=== PATIENT | female | born 1980 | race Caucasian/White ===

== ENCOUNTER 2019-06-14 08:56 | Emergency (ER) | payer MEDICAID ==
--- NOTE | 2019-06-14 09:37 | EDM.PDOC ---
ED HPI GENERAL MEDICAL PROBLEM - General Chief Complaint: Cardiovascular Problem Stated Complaint: BLOOD PRESSURE WAS LOW Time Seen by Provider: 06/14/19 09:32 Source of Information: Reports: Patient, RN, RN Notes Reviewed History Limitations: Reports: No Limitations - History of Present Illness INITIAL COMMENTS - FREE TEXT/NARRATIVE: Recoverer states she took pts blood pressure this morning and it was 79/44 and then 77/43. Blood pressure upon arrival is 95/43. Pt is from [facility]. Pt states she is dizzy this am and has been the last couple mornings. Patient also states that her blood pressures have been low the last couple mornings as well and did not eat this morning. Blood pressure medications were given right before vitals taken this am. Patient denies syncope, fever/chills, feeling ill. Onset: Today Duration: Improving Improves with: Reports: None Worsens with: Reports: None Associated Symptoms: Denies: Confusion, Chest Pain, Cough, Fever/Chills, Headaches, Loss of Appetite, Nausea/Vomiting, Shortness of Breath, Syncope, Weakness Throat Pain Score (Numeric/FACES): 2 - Related Data Allergies Allergy/AdvReac Type Severity Reaction Status Date / Time ciprofloxacin Allergy Seizure Verified 06/14/19 09:14 latex Allergy Hives Verified 06/14/19 09:14 Home Meds: Home Meds Aripiprazole Lauroxil [Aristada] 1,064 mg IM ASDIRECTED 06/14/19 [History] Cholecalciferol (Vitamin D3) [Vitamin D3] 1,000 unit PO DAILY 06/14/19 [History] DULoxetine HCl [Cymbalta] 60 mg PO DAILY 06/14/19 [History] Digoxin 0.125 mcg PO DAILY 06/14/19 [History] Lisinopril [Zestril] 10 mg PO DAILY 06/14/19 [History] Melatonin 3 mg PO DAILY 06/14/19 [History] Nicotine Polacrilex [Nicotine Gum] 2 mg BC Q6H PRN 06/14/19 [History] Spironolactone [Aldactone] 25 mg PO DAILY 06/14/19 [History] hydrOXYzine HCL [hydrOXYzine] 25 mg PO BID 06/14/19 [History] metFORMIN [Glucophage XR] 500 mg PO BID 06/14/19 [History] Past Medical History HEENT History: Reports: Impaired Vision Cardiovascular History: Reports: Heart Failure, Hypertension Respiratory History: Reports: None Gastrointestinal History: Reports: None Genitourinary History: Reports: None 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 Musculoskeletal History: Reports: None Neurological History: Reports: None Psychiatric History: Reports: Anxiety, Dementia Endocrine/Metabolic History: Reports: Diabetes, Type II Hematologic History: Reports: None Immunologic History: Reports: None Oncologic (Cancer) History: Reports: None Dermatologic History: Reports: Psoriasis - Infectious Disease History Infectious Disease History: Reports: Chicken Pox - Past Surgical History Head Surgeries/Procedures: Reports: None Social & Family History - Family History Family Medical History: Noncontributory - Tobacco Use Smoking Status *Q: Former Smoker Years of Tobacco use: 10 Packs/Tins Daily: 0 Used Tobacco, but Quit: Yes Month/Year Tobacco Last Used: 05/2019 - Caffeine Use Caffeine Use: Reports: Coffee - Recreational Drug Use Recreational Drug Use: No ED ROS GENERAL - Review of Systems Review Of Systems: Comprehensive ROS is negative, except as noted in HPI. ED EXAM, GENERAL - Physical Exam Exam: See Below Exam Limited By: No Limitations General Appearance: Alert, WD/WN, No Apparent Distress Eye Exam: Bilateral Eye: EOMI, Normal Inspection, PERRL Ears: Normal External Exam, Normal Canal, Hearing Grossly Normal, Normal TMs Ear Exam: Bilateral Ear: Auricle Normal, Canal Normal, TM normal Nose: Normal Inspection, Normal Mucosa, No Blood Throat/Mouth: Normal Inspection, Normal Lips, Normal Teeth, Normal Gums, Normal Oropharynx, Normal Voice, No Airway Compromise Head: Atraumatic, Normocephalic Neck: Normal Inspection, Supple, Non-Tender, Full Range of Motion Respiratory/Chest: No Respiratory Distress, Lungs Clear, Normal Breath Sounds, No Accessory Muscle Use, Chest Non-Tender Cardiovascular: Normal Peripheral Pulses, Regular Rate, Rhythm, No Edema, No Gallop, No JVD, No Murmur, No Rub GI/Abdominal: Normal Bowel Sounds, Soft, Non-Tender, No Organomegaly, No Distention, No Abnormal Bruit, No Mass Course - Vital Signs Last Recorded V/S: Last Vital Signs Temp 96.5 F L 06/14/19 09:06 Pulse 61 06/14/19 10:23 Resp 16 06/14/19 10:23 BP 94/45 L 06/14/19 11:21 Pulse Ox 100 06/14/19 10:23 - Orders/Labs/Meds Orders: Active Orders 24 hr Category Date Time Status EKG Documentation Completion [RC] URGENT Care 06/14/19 09:26 Active Sodium Chloride 0.9% [Normal Saline] 500 ml Med 06/14/19 10:30 Active IV .BOLUS Medication Orders Sodium Chloride (Normal Saline) 500 mls @ 999 mls/hr IV .BOLUS BRISEIDA Last Admin: 06/14/19 10:35 Dose: 999 mls/hr Labs: Laboratory Tests 06/14/19 06/14/19 06/14/19 Range/Units 09:37 09:37 09:37 WBC 7.7 (5.0-10.0) 10^3/uL RBC 4.51 (4.2-5.4) 10^6/uL Hgb 13.5 (12.0-16.0) g/dL Hct 40.2 (37.0-47.0) % MCV 89.1 (80-100) fL MCH 29.9 (27.0-34.0) pg MCHC 33.6 (33.0-35.0) g/dL Plt Count 280 (150-450) 10^3/uL Neut % (Auto) 65.5 (42.2-75.2) % Lymph % (Auto) 26.9 (20.5-50.1) % [place] % (Auto) 6.1 (2-8) % Eos % (Auto) 1.2 (1.0-3.0) % Baso % (Auto) 0.3 (0.0-1.0) % Sodium 135 (135-145) mmol/L Potassium 5.0 (3.6-5.0) mmol/L Chloride 99 L (101-111) mmol/L Carbon Dioxide 30.0 (21.0-31.0) mmol/L Anion Gap 11.0 BUN 17 (7-18) mg/dL Creatinine 0.7 (0.6-1.3) mg/dL Est Cr Clr Drug Dosing 80.61 mL/min Estimated GFR (MDRD) > 60 BUN/Creatinine Ratio 24.28 Glucose 93 (74-105) mg/dL Calcium 9.3 (8.4-10.2) mg/dl Total Bilirubin 0.6 (0.2-1.0) mg/dL AST 15 (10-42) IU/L ALT 14 (10-60) IU/L Alkaline Phosphatase 50 (42-121) IU/L Troponin I < 0.02 (0.00-0.02) ng/ml Total Protein 7.2 (6.7-8.2) g/dl Albumin 3.9 (3.2-5.5) g/dl Globulin 3.3 Albumin/Globulin Ratio 1.18 Digoxin 1.7 (0-2.5) ng/ml Meds: Medications Generic Name Dose Route Start Last Admin Trade Name Freq PRN Reason Stop Dose Admin Sodium Chloride 500 mls @ 999 mls/hr 06/14/19 10:30 06/14/19 10:35 Normal Saline IV 999 mls/hr .BOLUS BRISEIDA Administration Departure - Departure Time of Disposition: 11:30 Disposition: Home, Self-Care 01 Condition: Good Clinical Impression: Hypotension Qualifiers: Hypotension type: unspecified hypotension type Qualified Code(s): I95.9 - Hypotension, unspecified Instructions: Hypotension, [id number], Hypertension, [id number], Near- Syncope, [id number] Forms: ED Department Discharge Additional Instructions: You should follow-up with your primary care provider this week or next week to discuss medication adjustments for your blood pressure. You should also hold any other blood pressure medication today if you have not taken them already. Before you take your medications in the morning you should have your blood pressure checked. Sepsis Event Note - Evaluation Sepsis Screening Result: No Definite Risk - Focused Exam Vital Signs: Vital Signs Temp Pulse Resp BP Pulse Ox 06/14/19 11:21 94/45 L 06/14/19 10:56 98/48 L 06/14/19 10:23 61 16 86/49 L 100 06/14/19 09:06 96.5 F L 66 18 95/43 L 100 Date Exam was Performed: 06/14/19 Time Exam was Performed: 11:24
[2019-06-14 10:03] LABS: CHLORIDE,CL 99 mmol/L (101-111); SODIUM,NA 135 mmol/L (135-145)
[2019-06-14] MEDS ORDERED: Sodium Chloride 0.9% 500 ML IV SCH (10:30)
== END 2019-06-14 11:34 | disposition home or self-care (01) ==
LOC: DL.ED 08:56
DX: I95.9 Hypotension, unspecified (principal); I11.0 Hypertensive heart disease with heart failure; I50.9 Heart failure, unspecified; F41.9 Anxiety disorder, unspecified; E11.9 Type 2 diabetes mellitus without complications; Z79.84 Long term (current) use of oral hypoglycemic drugs; Z79.899 Other long term (current) drug therapy; Z88.1 Allergy status to other antibiotic agents; Z91.040 Latex allergy status; Z87.891 Personal history of nicotine dependence
CPT/HCPCS: 36415; 80053; 80162; 84484; 85025; 93005; 96360; 99285; J7040

== ENCOUNTER 2019-06-24 10:29 | Emergency (ER) | payer MEDICAID ==
[2019-06-24 11:28] LABS: ANION GAP 10.7; CHLORIDE,CL 100 mmol/L (101-111); SODIUM,NA 136 mmol/L (135-145)
--- NOTE | 2019-06-24 11:33 | EDM.PDOC ---
ED HPI GENERAL MEDICAL PROBLEM - General Chief Complaint: Cardiovascular Problem Stated Complaint: HIGH BLOOD PRESSURE/LEFT ARM PAIN Time Seen by Provider: 06/24/19 10:40 Source of Information: Reports: Patient, Retirement Records, RN Notes Reviewed History Limitations: Reports: No Limitations - History of Present Illness INITIAL COMMENTS - FREE TEXT/NARRATIVE: Senior Living Resident. Hx hypotension Lisnopril was on hold , re-started last week , Staff rechecking and BP have been in low 70's. State resident not c/o symptoms but when questioned resident able to verbalize dizzy if stands up to fast. Has follow up scheduled on Wednesday. No falls related to low BP - Related Data Allergies Allergy/AdvReac Type Severity Reaction Status Date / Time ciprofloxacin Allergy Seizure Verified 06/14/19 09:14 latex Allergy Hives Verified 06/14/19 09:14 Home Meds: Home Meds Aripiprazole Lauroxil [Aristada] 1,064 mg IM ASDIRECTED 06/14/19 [History] Cholecalciferol (Vitamin D3) [Vitamin D3] 1,000 unit PO DAILY 06/14/19 [History] DULoxetine HCl [Cymbalta] 60 mg PO DAILY 06/14/19 [History] Digoxin 0.125 mcg PO DAILY 06/14/19 [History] Lisinopril [Zestril] 10 mg PO DAILY 06/14/19 [History] Melatonin 3 mg PO DAILY 06/14/19 [History] Nicotine Polacrilex [Nicotine Gum] 2 mg BC Q6H PRN 06/14/19 [History] Spironolactone [Aldactone] 25 mg PO DAILY 06/14/19 [History] hydrOXYzine HCL [hydrOXYzine] 25 mg PO BID 06/14/19 [History] metFORMIN [Glucophage XR] 500 mg PO BID 06/14/19 [History] Past Medical History HEENT History: Reports: Impaired Vision Cardiovascular History: Reports: Heart Failure, Hypertension Respiratory History: Reports: None Gastrointestinal History: Reports: None Genitourinary History: Reports: None 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 Musculoskeletal History: Reports: None Neurological History: Reports: None Psychiatric History: Reports: Anxiety, Bipolar, Dementia Endocrine/Metabolic History: Reports: Diabetes, Type II Hematologic History: Reports: None Immunologic History: Reports: None Oncologic (Cancer) History: Reports: None Dermatologic History: Reports: Psoriasis - Infectious Disease History Infectious Disease History: Reports: Chicken Pox - Past Surgical History Head Surgeries/Procedures: Reports: None Social & Family History - Family History Family Medical History: Noncontributory - Tobacco Use Smoking Status *Q: Former Smoker Used Tobacco, but Quit: Yes Month/Year Tobacco Last Used: 1 - Caffeine Use Caffeine Use: Reports: None - Recreational Drug Use Recreational Drug Use: No ED ROS GENERAL - Review of Systems Review Of Systems: Comprehensive ROS is negative, except as noted in HPI. ED EXAM, GENERAL - Physical Exam Exam: See Below Exam Limited By: No Limitations General Appearance: Alert, No Apparent Distress Eye Exam: Bilateral Eye: EOMI Ears: Normal External Exam, Normal TMs Nose: Normal Inspection, Normal Mucosa Throat/Mouth: Normal Inspection, Normal Lips, No Airway Compromise Head: Atraumatic, Normocephalic Neck: Normal Inspection, Full Range of Motion Respiratory/Chest: No Respiratory Distress, Lungs Clear, Normal Breath Sounds Cardiovascular: Regular Rate, Rhythm, Bradycardia (mid 50' at rest, low 60's when up) GI/Abdominal: Normal Bowel Sounds (Female) Exam: Normal External Exam Extremities: Normal Range of Motion Neurological: Alert, Oriented, Normal Cognition Psychiatric: Normal Affect, Normal Mood Skin Exam: Warm, Dry, Intact, Normal Color. No: Diaphoretic, Pallor Course - Vital Signs Last Recorded V/S: Last Vital Signs Temp 97 F 06/24/19 10:33 Pulse 61 06/24/19 10:33 Resp 16 06/24/19 10:33 BP 101/58 L 06/24/19 10:33 Pulse Ox 100 06/24/19 10:33 - Orders/Labs/Meds Labs: Laboratory Tests 06/24/19 06/24/19 06/24/19 Range/Units 10:59 10:59 10:59 WBC 6.9 (5.0-10.0) 10^3/uL RBC 4.16 L (4.2-5.4) 10^6/uL Hgb 12.3 (12.0-16.0) g/dL Hct 37.0 (37.0-47.0) % MCV 88.9 (80-100) fL MCH 29.6 (27.0-34.0) pg MCHC 33.2 (33.0-35.0) g/dL Plt Count 204 D (150-450) 10^3/uL Neut % (Auto) 63.1 (42.2-75.2) % Lymph % (Auto) 27.8 (20.5-50.1) % [place] % (Auto) 7.1 (2-8) % Eos % (Auto) 1.7 (1.0-3.0) % Baso % (Auto) 0.3 (0.0-1.0) % PT 9.9 (9.0-12.0) SEC INR 1.0 (0.9-1.2) Sodium 136 (135-145) mmol/L Potassium 3.7 (3.6-5.0) mmol/L Chloride 100 L (101-111) mmol/L Carbon Dioxide 29.0 (21.0-31.0) mmol/L Anion Gap 10.7 BUN 19 H (7-18) mg/dL Creatinine 0.8 (0.6-1.3) mg/dL Est Cr Clr Drug Dosing 70.54 mL/min Estimated GFR (MDRD) > 60 BUN/Creatinine Ratio 23.75 Glucose 81 (74-105) mg/dL Calcium 9.1 (8.4-10.2) mg/dl Total Bilirubin 0.6 (0.2-1.0) mg/dL AST 15 (10-42) IU/L ALT 20 (10-60) IU/L Alkaline Phosphatase 53 (42-121) IU/L Troponin I < 0.02 (0.00-0.02) ng/ml Total Protein 6.5 L (6.7-8.2) g/dl Albumin 3.8 (3.2-5.5) g/dl Globulin 2.7 Albumin/Globulin Ratio 1.41 Digoxin (0-2.5) ng/ml 06/24/19 Range/Units 10:59 WBC (5.0-10.0) 10^3/uL RBC (4.2-5.4) 10^6/uL Hgb (12.0-16.0) g/dL Hct (37.0-47.0) % MCV (80-100) fL MCH (27.0-34.0) pg MCHC (33.0-35.0) g/dL Plt Count (150-450) 10^3/uL Neut % (Auto) (42.2-75.2) % Lymph % (Auto) (20.5-50.1) % [place] % (Auto) (2-8) % Eos % (Auto) (1.0-3.0) % Baso % (Auto) (0.0-1.0) % PT (9.0-12.0) SEC INR (0.9-1.2) Sodium (135-145) mmol/L Potassium (3.6-5.0) mmol/L Chloride (101-111) mmol/L Carbon Dioxide (21.0-31.0) mmol/L Anion Gap BUN (7-18) mg/dL Creatinine (0.6-1.3) mg/dL Est Cr Clr Drug Dosing mL/min Estimated GFR (MDRD) BUN/Creatinine Ratio Glucose (74-105) mg/dL Calcium (8.4-10.2) mg/dl Total Bilirubin (0.2-1.0) mg/dL AST (10-42) IU/L ALT (10-60) IU/L Alkaline Phosphatase (42-121) IU/L Troponin I (0.00-0.02) ng/ml Total Protein (6.7-8.2) g/dl Albumin (3.2-5.5) g/dl Globulin Albumin/Globulin Ratio Digoxin 0.9 (0-2.5) ng/ml Departure - Departure Time of Disposition: 11:53 Disposition: Home, Self-Care 01 Condition: Good Clinical Impression: Hypotension Qualifiers: Hypotension type: unspecified hypotension type Qualified Code(s): I95.9 - Hypotension, unspecified Instructions: Hypotension, [id number] Referrals: Nati Torres [Primary Care Provider] - Forms: ED Department Discharge Additional Instructions: Hold Lisinopril Continue to check BP Follow up on Wednesday with primary care provider continue other home emdicatoins Sepsis Event Note - Evaluation Sepsis Screening Result: No Definite Risk - Focused Exam Date Exam was Performed: 06/26/19 Time Exam was Performed: 23:55
== END 2019-06-24 12:00 | disposition home or self-care (01) ==
LOC: DL.ED 10:29
DX: I95.9 Hypotension, unspecified (principal); I10 Essential (primary) hypertension; E11.9 Type 2 diabetes mellitus without complications; Z91.040 Latex allergy status; Z88.1 Allergy status to other antibiotic agents; Z79.899 Other long term (current) drug therapy; Z87.891 Personal history of nicotine dependence
CPT/HCPCS: 36415; 80053; 80162; 84484; 85025; 85610; 93005; 99285-25

== ENCOUNTER 2019-07-10 14:25 | Emergency (ER) | payer MEDICAID ==
[2019-07-10 15:21] LABS: ANION GAP 10.1 mEq/L (7-13); CHLORIDE,CL 101 mmol/L (98-107); SODIUM,NA 140 mmol/L (136-145)
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
[2019-07-10] MEDS: Nitrofurantoin Monohydrate/Macrocrystalline 100 MG Cap PO ONE (15:56)
== END 2019-07-10 16:14 ==
LOC: DL.ED 14:25
DX: F91.2 Conduct disorder, adolescent-onset type (principal); N30.00 Acute cystitis without hematuria; I11.0 Hypertensive heart disease with heart failure; I50.9 Heart failure, unspecified; F41.9 Anxiety disorder, unspecified; F32.9 Major depressive disorder, single episode, unspecified; E11.9 Type 2 diabetes mellitus without complications; Z88.1 Allergy status to other antibiotic agents; Z91.040 Latex allergy status; Z79.899 Other long term (current) drug therapy; Z79.84 Long term (current) use of oral hypoglycemic drugs
CPT/HCPCS: 36415; 80053; 80305; 80307; 81001; 81025; 85025; 87086; 99285; A9270